=== PATIENT | male | born 1960 | race Caucasian/White ===

== ENCOUNTER 2017-03-14 06:06 | Inpatient (IN) | payer OTHER ==
[~2017-03-14] VITALS: Ht 185.4 cm; Wt 90.0 kg
--- NOTE | ~2017-03-14 | EKG ---
PATIENT: DIONICIO CLINE UNIT #: [id number] Ventricular Rate: 61 BPM Atrial Rate: 61 BPM P-R Interval: 182 ms QRS Duration: 96 ms Q-T Interval: 430 ms QTC Calculation(Bezet): 432 ms P [place]: 80 degrees Calculated R [place]: -14 degrees Calculated T [place]: 19 degrees Diagnosis Line: Normal sinus rhythm Diagnosis Line: Normal ECG Diagnosis Line: No previous ECGs available Diagnosis Line: Confirmed by SHUBHAM VARMA MD ([id number]) on Diagnosis Line: 03/16/2017 8:23:09 AM INTERPRETING MD: AVANI DOLAN
--- NOTE | ~2017-03-14 | CR72 ---
[facility] A Service of [facility] RADIOLOGY TEXT RESULTS PATIENT: DIONICIO CLINE RAY LOCATION: C4B 460-01 : 56 UNIT #: [id number] AGE: [address]: Martin Red MD SEX: M ORDER DR: [id number] [place] [address] [id number] E MR#: [id number] Acc #: [id number] NAME: DIONICIO CLINE : 1960 SEX: M STUDY DATE/TIME: 03/14/2017 7:12 UNIT: SED ROOM: STUDY DESCRIPTION: CR Chest Single View Portable Attending Physician: Clay Jesus M.D. Ordering Physician: Maria Fernanda Small M.D. MEDICAL IMAGING REPORT This report is preliminary unless electronic signature is present. EXAM Portable chest x-ray, 03/14/2017. HISTORY Chest pain and vomiting also upper abdomen pain radiates to right side prior to arrival. TECHNIQUE AP radiograph of the chest is presented. COMPARISON Images of chest from rib series, 03/18/2016. FINDINGS Heart and mediastinum within normal limits of size and contour. The lungs are well inflated bilaterally. There is no evidence of acute infectious or inflammatory disease, pleural effusion, or pneumothorax. No suspicious nodule. Bony structures show no acute abnormality. Dictated by... Jhony Mason M.D. THIS IS AN ELECTRONICALLY VERIFIED REPORT Jhony Mason M.D. at 03/16/2017 6:13 PM NAJMA/niall TD: 03/14/2017 11:31 JOB #: [id number] [facility] A Service of [facility] RADIOLOGY TEXT RESULTS PATIENT: DIONICIO CLINE RAY LOCATION: C4B 460-01 : 56 UNIT #: [id number] AGE: [address]: Martin Red MD SEX: M ORDER DR: MEDICAL IMAGING REPORT Page 1 of 1
--- NOTE | ~2017-03-14 | CO ---
Unit #: [id number] #: [id number] Patient: DIONICIO CLINE [id number] [address] [address] [id number] I MR#: [id number] NAME: DIONICIO CLINE ROOM: 460 Age: 56 Sex: M Admission Date: 03/14/2017 : 1960 Attending Physician: Martin Red Jr., M.D. Primary Care Physician: Primary Care Physician No Consultation Date: 03/16/2017 CONSULTATION REPORT REASON FOR CONSULTATION Abnormal LFTs and abdominal pain following laparoscopic cholecystectomy. HISTORY OF PRESENT ILLNESS Mr. Cline is a very pleasant 56-year-old white gentleman, who underwent laparoscopic cholecystectomy on 03/14/2017. This was done for acute cholecystitis and cholelithiasis. The patient postoperatively is jaundiced with bilirubin of 6. His bilirubin before the exam was normal. In addition, he is complaining of pain in the right upper quadrant of the abdomen along with tenderness and some rigidity in the abdomen. PAST MEDICAL HISTORY He has no significant past medical history and has had no prior abdominal surgeries. MEDICATIONS He is not on any regular medications. ALLERGIES Denies any drug allergies. SOCIAL HISTORY Lives at home with his family. Does not smoke. Drinks occasionally. He is physically fairly active. FAMILY HISTORY There is no family history of colon, pancreatic cancer, or liver disease. REVIEW OF SYSTEMS Detailed review of organ systems does not reveal any recent weight loss. No history of fever, chills, or rigors. No history of headache, seizure, chest pain, or syncope. No history of cough, expectoration, or hemoptysis. No history of dysuria, hematuria, or pyuria. No history of focal seizures or extremity weakness. PHYSICAL EXAMINATION GENERAL: He is alert and oriented, and appears uncomfortable due to the pain. VITAL SIGNS: His temperature is 101.1 yesterday and 100 today. In addition, his heart rate is 84 per minute, normal sinus rhythm; respiratory rate is 18, blood pressure is 126/86. He weighs 199 pounds, which is close to his baseline weight. HEENT: He has mild pallor. There being tinge of icterus. No lymphadenopathy or peripheral edema. Unit #: [id number] #: [id number] Patient: WALKER,DIONICIO RAY CARDIOVASCULAR: Normal heart sounds. No murmurs. LUNGS: Auscultation over the lungs reveal normal breath sounds. Good air entry. ABDOMEN: Shows tenderness over the right upper quadrant over a wide area as well as right mid abdomen. Liver and spleen are not palpable. Bowel sounds normal. DIAGNOSTIC STUDIES LABORATORY RESULTS: Shows a hemoglobin of 13, white count of 17,000 with left shift, platelet count is 166. Serum chemistry shows a total bilirubin of 5.8, it was 1.3 before surgery and AST and ALT are 32 and 39 respectively. Alkaline phosphatase 107. Sodium is 137 and potassium 3.8. CLINICAL IMPRESSION The patient is with jaundice postoperatively following laparoscopic cholecystectomy. The differential diagnosis here includes biliary ductal stones versus bile leak. An endoscopic retrograde cholangiopancreatography is warranted to be scheduled later today. The pros and cons of procedure, potential risks, and complications including possibility of perforation, bleeding, and complications related to sedation were discussed with the patient and he was reassured. Thank you for asking me to see this pleasant gentleman. I appreciate the consult. Dictated by... Frieda Hunter/fiorella TD: 03/23/2017 16:04 JOB #: [id number] CC: Martin Red Jr., M.D. CONSULTATION REPORT Page 1 of 1 X Chang Gee MD X CONSULTATION REPORT
--- NOTE | ~2017-03-14 | DS ---
Unit #: [id number] #: [id number] Patient: DIONICIO CLINE [id number] [address] [address] [id number] I MR#: [id number] NAME: DIONICIO CLINE ROOM: 460 Age: 56 Sex: M Admission Date: 03/14/2017 : 1960 Discharge Date: 03/18/2017 Attending Physician: Martin Red Jr., M.D. Primary Care Physician: No Primary Care Physician DISCHARGE SUMMARY ADMITTING PHYSICIAN Martin Red Jr., M.D. ADMITTING DIAGNOSIS Symptomatic cholelithiasis. DISCHARGE DIAGNOSIS Acute necrotizing cholecystitis and cholelithiasis. CONSULTATIONS Dr. Chang Gee M.D. PROCEDURES PERFORMED 1. On 03/15 he underwent laparoscopic cholecystectomy. 2. On 03/16 he underwent attempted ERCP which was unsuccessful. 3. On 03/17 he underwent ERCP at [facility] with retrieval of common bile duct stone and placement of stent. BRIEF HOSPITAL COURSE This is a 56-year-old gentleman who presented with right upper quadrant pain. He had ultrasound and CT scan done which showed cholelithiasis. There was no abnormal look/appearing features of the gallbladder at that time. He underwent laparoscopic cholecystectomy and he was noted to have fairly inflamed thickened gallbladder. Path report came back as acute necrotizing cholecystitis. Postoperatively he had a dramatic rise in his bilirubin and GI was consulted for ERCP. The first attempt was unsuccessful. Second attempt was successful. He had a decline in his total bilirubin on the following day and was discharged home. DISPOSITION Discharge to home. FOLLOWUP 1. He is to follow up with me in the office in two weeks. 2. He is to follow up with GI to schedule stent removal six to eight weeks from now. DISCHARGE MEDICATIONS He declined any narcotics at the time of discharge. ACTIVITY His activity is as tolerated. Unit #: [id number] #: [id number] Patient: DIONICIO CLINE Dictated by... Haseeb Davies III, M.D. VCL/adrian TD: 03/20/2017 15:53 JOB #: [id number] DISCHARGE SUMMARY Page 1 of 1 X Haseeb Davies III, MD DISCHARGE SUMMARY
--- NOTE | ~2017-03-14 | US67 ---
[facility] A Service of [facility] RADIOLOGY TEXT RESULTS PATIENT: DIONICIO CLINE LOCATION: C4B 460-01 : 56 UNIT #: [id number] AGE: [address]: Martin Red MD SEX: M ORDER DR: [id number] [place] [address] [id number] E MR#: [id number] Acc #: [id number] NAME: DIONICIO CLINE : 1960 SEX: M STUDY DATE/TIME: 03/14/2017 8:20 UNIT: SED ROOM: STUDY DESCRIPTION: US Gallbladder Attending Physician: Clay Jesus M.D. Ordering Physician: Clay Jesus M.D. MEDICAL IMAGING REPORT This report is preliminary unless electronic signature is present. EXAM Gallbladder ultrasound, 03/14 INDICATION Right upper quadrant pain and back pain for 1 day. FINDINGS Sonographic evaluation was performed of right upper quadrant in multiple planes. Comparison made with a CT scan performed 03/14/2017. Visualized portions of the pancreas are normal. The tail is partially obscured. Main portal vein patent by Doppler. Liver parenchyma is homogeneous and normal. No liver mass is identified. Right kidney is morphologically normal and nonobstructed. Gallbladder contains a stone in the neck. Gallbladder wall measures less than 4 mm in thickness. Common duct is normal at 5 mm or less internal diameter. IMPRESSION 1. Cholelithiasis. No ultrasound evidence of acute cholecystitis or biliary obstruction. 2. Otherwise normal right upper quadrant ultrasound. Dictated by... Janak You Jr., M.D. THIS IS AN ELECTRONICALLY VERIFIED REPORT Janak You Jr., M.D. at 03/15/2017 7:56 AM EHSAN/niall TD: 03/14/2017 16:19 JOB #: [id number] [facility] A Service of [facility] RADIOLOGY TEXT RESULTS PATIENT: DIONICIO CLINE LOCATION: C4B 460- : 56 UNIT #: [id number] AGE: [address]: Martin Red MD SEX: M ORDER DR: MEDICAL IMAGING REPORT Page 1 of 1
--- NOTE | ~2017-03-14 | HP ---
Unit #: [id number] #: [id number] Patient: DIONICIO CLINE [id number] [place] [address] [facility]. [place], [place] [address] [id number] I MR#: [id number] NAME: DIONICIO CLINE ROOM: 476 Age: 56 Sex: M Admission Date: 03/14/2017 : 1960 Attending Physician: Martin Red Jr., M.D. Primary Care Physician: No Primary Care Physician HISTORY AND PHYSICAL CHIEF COMPLAINT Severe right upper quadrant abdominal pain with associated nausea. HISTORY OF PRESENT ILLNESS The patient is a 56-year-old white male who was in normal good health up until earlier this morning when he developed significant right upper quadrant and mid epigastric abdominal pain with radiation to the chest. He has had some symptoms off and on but none of this extent and intensity. He also had some associated nausea with vomiting and went to the emergency room with these complaints. He was worked up in the emergency room, noted to have positive Hernandez sign with an ultrasound which revealed multiple gallstones with thickened wall of the gallbladder. He has had no significant gallbladder disease in the past. PAST MEDICAL HISTORY SERIOUS ILLNESSES: None. SURGERY: He has had multiple minor procedures including left foot surgery, tonsillectomy, left scleral retinal detachment and lens implant. MEDICATIONS None chronically. ALLERGIES None known. TRANSFUSIONS None in the past. FAMILY HISTORY Noncontributory. SOCIAL HISTORY The patient is a nonsmoker, occasional drinker, has a normal good appetite, no recent weight change. IMMUNIZATIONS Up to date. REVIEW OF SYSTEMS Ten-system review has been performed which is nonremarkable except as noted in the present illness. Unit #: [id number] #: [id number] Patient: DIONICIO CLINE PHYSICAL EXAMINATION VITAL SIGNS: Temperature on admission, the patient is afebrile. Pulse 63. Respirations 17. Blood pressure initially was 182/100. It is now down to 140/80. GENERAL DESCRIPTION: The patient is a well-developed 56-year-old white male in no acute distress. HEENT: Nonremarkable. NECK: Supple. CHEST: There is equal bilateral expansion with bilateral equal breath sounds. The lungs are clear bilaterally. HEART: Regular rhythm, without murmurs or gallops. There is no cardiomegaly clinically. ABDOMEN: Soft, moderate to markedly tender in the right upper quadrant with some guarding, without rebound. Active bowel sounds present. No evidence of ascites or hernias. EXTREMITIES: Full range of motion without limitation. peripheral edema. BACK EXAM: There is no CVA tenderness. NEUROLOGICALLY: Grossly intact. DIAGNOSTIC STUDIES LABORATORY: White blood cell count is elevated at 12,000. IMAGING: Ultrasound as noted above revealed evidence of gallstones with thickening of the wall of the gallbladder. IMPRESSION The patient likely has acute cholecystitis or subacute cholecystitis with cholelithiasis. PLAN The plan will be due to admit him, start him on IV antibiotics and tomorrow morning take him to the operating room for laparoscopic cholecystectomy. I have discussed this surgery including the risks including that of common duct injury, biliary leak and bleeding and intraabdominal organ injury and he consents. Dictated by Martin Red Jr. MMalcolm. RAYMON/adrian TD: 03/14/2017 16:36 JOB #: [id number] HISTORY AND PHYSICAL Page 1 of 1 X Martin Red MD X HISTORY AND PHYSICAL
--- NOTE | ~2017-03-14 | OR ---
Unit #: [id number] #: [id number] Patient: DIONICIO CLINE [id number] [place] [id number] [facility]. [place], [place] [address] [id number] I MR#: [id number] NAME: DIONICIO CLINE ROOM: 460 Date of Procedure: 03/16/2017 Admission Date: 03/14/2017 Surgeon: Chang Gee M.D. : 1960 Attending Physician: Martin Red Jr., M.D. OPERATIVE REPORT PREOPERATIVE DIAGNOSES Elevated bilirubin following a laparoscopic cholecystectomy. The patient also has history of right upper quadrant and right-sided abdominal pain and tenderness. The purpose of the examination is to look for any biliary leak or common bile duct stone. PROCEDURES PERFORMED Upper gastrointestinal endoscopy and attempted endoscopic retrograde cholangiopancreatography. POSTOPERATIVE DIAGNOSES 1. The patient had severe ulcerative esophagitis. This was quite impressive with linear ulcers ascending as far as the posterior pharynx. 2. Rest of the examination up to third part of duodenum was normal. 3. An hour and a half was spent in attempting cannulation of the common bile duct which was very difficult due to the difficult lie of the scope and the procedure was terminated after about an hour and 15 minutes. RECOMMENDATIONS 1. Pantoprazole 40 mg p.o. b.i.d. 2. The patient will be scheduled for repeat examination at [facility] with Dr. Diaz tomorrow. The above findings were discussed with the patient's family. SEDATION USED MAC. DESCRIPTION OF PROCEDURE Following detailed explanation of potential risks and complications of an upper endoscopy and an ERCP namely perforation, bleeding, and complications related to sedation, the patient was brought to GI lab and laid in the left semiprone position. Sedation using MAC was given. Lubricated tip of the Olympus video upper endoscope was passed through the bite block into the proximal esophagus under direct vision. The entire esophageal mucosa was examined. The patient was noted to have severe confluent ulcerative esophagitis involving the distal mid and proximal esophagus with linear ulcers ascending as far as the posterior pharynx. These findings were quite impressive. The scope was then advanced into the gastric cavity and the latter was insufflated. Mucosa of the fundus, body, and antrum was examined and appeared unremarkable. Pylorus was intubated with visualization of the normal duodenal bulb and second and third part of the duodenum. Upon withdrawal and retroflexion; incisura, Unit #: [id number] #: [id number] Patient: DIONICIO CLINE cardia, and greater curve was examined and no additional findings were noted. The scope was then withdrawn in the distal esophagus. Entire esophageal mucosa was examined all the way up to pharynx and no additional findings were noted. The ERCP part was done. A lateral-viewing duodenoscope was advanced through the oral cavity into the esophagus and advanced into the stomach. Pylorus was intubated in the usual fashion. The scope was advanced in deep descending duodenum. Upon shortening the scope, major papilla and ampullary area was visualized; however, the lie of the scope, because of the U-shaped stomach made it very difficult to enter the papillary area en face. After about an hour and 15 minutes, it was decided to abort the procedure and repeat the examination at [facility] tomorrow. This was discussed with Dr. Diaz on the phone and the patient will be rescheduled for a repeat ERCP tomorrow at [facility]. Dictated by... Frieda Hunter/fiorella TD: 03/20/2017 12:55 JOB #: [id number] OPERATIVE REPORT Page 1 of 1 X Chang Gee MD PROCEDURE OPERATIVE NOTE
--- NOTE | ~2017-03-14 | CT2 ---
[facility] A Service of [facility] RADIOLOGY TEXT RESULTS PATIENT: DIONICIO CLINE LOCATION: C4B 460-01 : 56 UNIT #: [id number] AGE: [address]: Martin Red MD SEX: M ORDER DR: [id number] [address] [address] [id number] E MR#: [id number] Acc #: [id number] NAME: DIONICIO CLINE : 1960 SEX: M STUDY DATE/TIME: 03/14/2017 7:07 UNIT: SED ROOM: STUDY DESCRIPTION: CT Abd and Pelv W Cont Attending Physician: Clay Jesus M.D. Ordering Physician: Maria Fernanda Small M.D. MEDICAL IMAGING REPORT This report is preliminary unless electronic signature is present. EXAM CT abdomen and pelvis, 03/14/2017. HISTORY chest pain and vomiting, also upper abdominal pain radiating to right side prior to arrival. TECHNIQUE CT abdomen and pelvis performed with intravenous administration of 100 mL Isovue-370. Enteric contrast not administered. This CT exam was performed with one or more of the following radiation dose reduction techniques: automatic exposure control, adjustment of mA and/or kV according to patient size, and iterative reconstruction. COMPARISON 07/06/2006 FINDINGS The lungs show dependent linear atelectasis. Inferior heart and pericardium show heart kedbrv-or-zuxwd limits of normal in size, stable. Liver unremarkable. Uncomplicated cholelithiasis. Spleen, pancreas, adrenal glands, kidneys unremarkable. CT PELVIS: No inguinal adenopathy. Urinary bladder unremarkable. There is mild prostatic enlargement. No focal prostatic abnormality is suggested. No pelvic fluid collections. No pelvic or retroperitoneal adenopathy. Small hiatal hernia. Remainder of visualized distal esophagus and stomach unremarkable. The small bowel is unremarkable. The appendix is not clearly identified. No pericecal or right lower quadrant inflammatory change is seen. The colon is unremarkable. The aorta appears of normal caliber. Scattered atherosclerotic arterial calcifications. Bony structures are remarkable. [facility] A Service of [facility] RADIOLOGY TEXT RESULTS PATIENT: DIONICIO CLINE RAY LOCATION: C4B 460-01 : [birth year] UNIT #: [id number] AGE: [address]: Martin Red MD SEX: M ORDER DR: IMPRESSION 1. There is no clearly acute abnormality seen within the abdomen or pelvis. 2. Uncomplicated cholelithiasis. 3. Small hiatal hernia. 4. Appendix not visualized but no pericecal or right lower quadrant inflammatory change is seen. 5. Mild prostatic enlarged without focal abnormality suggested. 6. Heart rzgrdj-dj-lzojc limits of normal in size, stable. 7. Dependent atelectasis lung bases. Dictated by... Jhony Mason M.D. THIS IS AN ELECTRONICALLY VERIFIED REPORT Jhony Mason M.D. at 03/16/2017 6:13 PM NAJMA/niall TD: 03/14/2017 11:26 JOB #: [id number] MEDICAL IMAGING REPORT Page 1 of 1
--- NOTE | ~2017-03-14 | OR ---
Unit #: [id number] #: [id number] Patient: DIONICIO CLINE [id number] [address] [address] [id number] Julisa MR#: [id number] NAME: DIONICIO CLINE ROOM: 460 Date of Procedure: 03/14/2017 Admission Date: 03/14/2017 Surgeon: Haseeb Davies III, M.D. : 1960 Attending Physician: Martin Red Jr., M.D. Primary Care Physician: Primary Care Physician No OPERATIVE REPORT PREOPERATIVE DIAGNOSIS Symptomatic cholelithiasis. POSTOPERATIVE DIAGNOSIS Acute cholecystitis. PROCEDURE PERFORMED Laparoscopic cholecystectomy. ANESTHESIA General. SPECIMENS Gallbladder to Pathology. COMPLICATIONS None apparent. ESTIMATED BLOOD LOSS Minimal. INDICATIONS FOR PROCEDURE This is a 56-year-old gentleman, who presented to the ER with abdominal pain. Ultrasound which confirmed gallstones and elevated white blood count. LFTs were normal. He is here today for laparoscopic cholecystectomy. DESCRIPTION OF PROCEDURE After consent was obtained, the patient was brought to the operating room and placed in the supine position. General anesthetic was administered and his abdomen was prepped and draped in standard surgical fashion. I made a 5-mm incision in the right upper quadrant. I used an Optiview to enter into the peritoneal cavity without any difficulty. CO2 pneumoperitoneum was then established. Next, a second 5-mm port was placed in the supraumbilical region and an 11-mm port was placed in the midepigastric region and a third 5-mm port was placed in the right lateral subcostal region. I began by attempting to grasp the gallbladder which was extremely distended. There was some light yellowish fluid in the right upper quadrant as well. Photos of that were obtained. I then aspirated the gallbladder and it had a very infected like fluid within the body of the gallbladder itself. I then was able to grasp the gallbladder and retracted it superiorly and laterally. It was very edematous and had Unit #: [id number] #: [id number] Patient: DIONICIO CLINE a lot of thickening of the wall. I am surprised his ultrasound and CT scan showed a relatively normal appearing gallbladder with the exception of gallstones. I then was able to dissect out the cystic duct and cystic artery and after these were carefully identified, I placed two clips proximally and one clip distally along both structures and then they were divided. There was also a small posterior branch, which was clipped and divided. I then took the gallbladder off the liver bed using the hook cautery. I placed the gallbladder within an EndoCatch bag and retrieved it through the epigastric port site after dilating the fascia. I had excellent hemostasis with the exception of some mild oozing from the liver bed which was contained with Surgicel. I irrigated and had good hemostasis again. The trocars were removed. I injected all the port sites with 0.25% plain Marcaine. I reapproximated the fascia at the epigastric port site with an interrupted 0 Vicryl rbyjvo-it-ygsiw suture. I then reapproximated the skin edges with interrupted 4-0 Vicryl subcuticular suture. Steri-Strips were then applied. The patient tolerated the procedure without any problems and returned to the recovery room in stable condition. Dictated by... Haseeb Davies III, M.D. VCL/fiorella TD: 03/15/2017 15:32 JOB #: [id number] OPERATIVE REPORT Page 1 of 1 X Haseeb Davies III, MD PROCEDURE OPERATIVE NOTE
[~2017-03-14 06:06] MED LIST: AVAPRO PO; VICODIN 5/500 T1 TAB PO; ZYRTEC PO
[2017-03-14 06:25] LABS: BASOPHIL% 0.3 % (0-2.5); EOSINOPHIL# 0.1 X10e3 (0-0.7); EOSINOPHIL% 0.5 % (0.0-7.0); HEMATOCRIT 44.9 % (38.0-50.0); HEMOGLOBIN 15.3 gm/dL (13.0-16.0); LYMPHOCYTE# 1.2 X10e3 (1.0-3.5); LYMPHOCYTE% 9.8 % (17.0-45.0); MEAN CELL VOLUME 90.5 FL (83-96); MEAN CORPUSCULAR HEMOGLOBIN 30.8 PG (28-34); MEAN PLATELET VOLUME 8.8 FL (6.5-11.5); MONOCYTE# 0.5 X10e3 (0-1.0); MONOCYTE% 4.1 % (3.0-12.0); NEUTROPHIL# 10.5 X10e3 (1.5-7.1); NEUTROPHIL% 85.3 % (40-75); PLATELET COUNT 209 X10e3 (140-420); RED BLOOD COUNT 4.96 X10e (3.90-5.60); RED CELL DISTRIBUTION WIDTH 13.7 % (11.0-15.5); WHITE BLOOD COUNT 12.4 X10e3 (4.0-10.5)
[2017-03-14 06:26] LABS: DIFF IND NO
[2017-03-14 06:37] LABS: INR 0.9; PROTHROMBIN TIME (PATIENT) 10.7 SECONDS (9.5-12.4)
[2017-03-14 06:43] LABS: POC - CKMB 1.6 ng/mL (0.0-7.9)
[2017-03-14 06:44] LABS: PARTIAL THROMBOPLASTIN TIME 27.3 SECONDS (25.6-38.1)
[2017-03-14 06:44] LABS: POC - MYOGLOBIN 56.7 ng/mL (0.0-169.0); POC - TROPONIN <0.05 ng/mL (<=0.05)
[2017-03-14 06:50] LABS: ALBUMIN SERUM 4.5 g/dL (3.5-5.0); ALKALINE PHOSPHATASE 70 U/L (32-92); ALT (SGPT) 22 U/L (10-40); AMYLASE 21 U/L (0-46); AST (SGOT) 18 U/L (10-42); BILIRUBIN, DIRECT 0.1 mg/dL (0.0-0.2); BILIRUBIN,INDIRECT 1.2 mg/dL (0.0-0.9); BILIRUBIN,TOTAL 1.3 mg/dL (0.2-2.0); BLOOD UREA NITROGEN 13 mg/dL (9-23); CALCIUM SERUM 8.6 mg/dL (8.4-10.2); CARBON DIOXIDE 26 mmol/L (22-31); CHLORIDE 103 mmol/L (100-111); GLOM FILT RATE Estimated 82.6 mL/min (>60); GLUCOSE FASTING 151 mg/dL (70-110); LIPASE 36 U/L (22-51); POTASSIUM 3.2 mmol/L (3.5-5.1); PROTEIN TOTAL SERUM 7.9 g/dL (6.0-8.3); SODIUM 139 mmol/L (135-145)
[2017-03-14 06:51] LABS: ALCOHOL BLOOD <5 mg/dL (0)
[2017-03-14 08:20] LABS: MICRO INDICATED? NO; URINE APPEARANCE CLEAR; URINE BILIRUBIN NEG (NEG); URINE BLOOD NEG (NEG); URINE COLOR YELLOW; URINE GLUCOSE NORM (NORM); URINE KETONE NEG (NEG); URINE LEUKOCYTE ESTERASE NEG (NEG); URINE NITRATE NEG (NEG); URINE PH 7.5 (5-8); URINE PROTEIN NEG (NEG); URINE SOURCE CLEAN CATCH; URINE SPECIFIC GRAVITY 1.015 (1.003-1.035); URINE UROBILINOGEN 0.2 MG/DL (NORM)
[2017-03-14 08:31] LABS: AMPHETAMINE NEG (NEG); BARBITURATES NEG (NEG); BENZODIAZEPINES NEG (NEG); COCAINE NEG (NEG); MARIJUANA NEG (NEG); OPIATES POS (NEG); TRICYCLIC ANTIDEPRESSANTS NEG (NEG); U METHADONE NEG (NEG)
[2017-03-15 03:37] LABS: BASOPHIL% 0.1 % (0-2.5); EOSINOPHIL% 0.1 % (0.0-7.0); HEMATOCRIT 42.2 % (38.0-50.0); HEMOGLOBIN 14.1 gm/dL (13.0-16.0); LYMPHOCYTE# 1.2 X10e3 (1.0-3.5); LYMPHOCYTE% 7.2 % (17.0-45.0); MEAN CELL VOLUME 90.9 FL (83-96); MEAN CORPUSCULAR HEMOGLOBIN 30.4 PG (28-34); MEAN CORPUSCULAR HGB CONC 33.4 g/dL (30-36); MONOCYTE# 1.2 X10e3 (0-1.0); MONOCYTE% 7.3 % (3.0-12.0); NEUTROPHIL# 14.5 X10e3 (1.5-7.1); NEUTROPHIL% 85.3 % (40-75); PLATELET COUNT 184 X10e3 (140-420); RED BLOOD COUNT 4.65 X10e (3.90-5.60); RED CELL DISTRIBUTION WIDTH 14.2 % (11.0-15.5); WHITE BLOOD COUNT 17.1 X10e3 (4.0-10.5)
[2017-03-15 03:38] LABS: DIFF IND YES
[2017-03-15 03:52] LABS: BUN/CREATININE RATIO 13.84; CALCIUM SERUM 8.2 mg/dL (8.4-10.2); CREATININE SERUM 1.3 mg/dL (0.6-1.4); GLOM FILT RATE Estimated 60.2 mL/min (>60); POTASSIUM 3.8 mmol/L (3.5-5.1)
[2017-03-15 04:05] LABS: PLATELET ESTIMATE DECREASED (NORMAL); RBC NORMAL YES
[2017-03-16 04:06] LABS: HEMATOCRIT 38.8 % (38.0-50.0); MEAN CELL VOLUME 91.6 FL (83-96); MEAN CORPUSCULAR HEMOGLOBIN 30.6 PG (28-34); MEAN CORPUSCULAR HGB CONC 33.5 g/dL (30-36); MEAN PLATELET VOLUME 9.2 FL (6.5-11.5); RED BLOOD COUNT 4.24 X10e (3.90-5.60); RED CELL DISTRIBUTION WIDTH 13.9 % (11.0-15.5); WHITE BLOOD COUNT 15.5 X10e3 (4.0-10.5)
[2017-03-16 04:31] LABS: ALBUMIN SERUM 3.3 g/dL (3.5-5.0); BILIRUBIN,TOTAL 5.8 mg/dL (0.2-2.0); CALCIUM SERUM 8.2 mg/dL (8.4-10.2); GLOM FILT RATE Estimated 82.6 mL/min (>60); POTASSIUM 3.8 mmol/L (3.5-5.1); PROTEIN TOTAL SERUM 6.5 g/dL (6.0-8.3)
[2017-03-17 02:26] LABS: BASOPHIL% 0.3 % (0-2.5); DIFF IND NO; EOSINOPHIL# 0.1 X10e3 (0-0.7); EOSINOPHIL% 0.9 % (0.0-7.0); HEMATOCRIT 35.8 % (38.0-50.0); LYMPHOCYTE# 0.8 X10e3 (1.0-3.5); LYMPHOCYTE% 8.4 % (17.0-45.0); MEAN CELL VOLUME 91.4 FL (83-96); MEAN CORPUSCULAR HEMOGLOBIN 30.6 PG (28-34); MEAN CORPUSCULAR HGB CONC 33.4 g/dL (30-36); MEAN PLATELET VOLUME 9.1 FL (6.5-11.5); MONOCYTE# 0.7 X10e3 (0-1.0); MONOCYTE% 6.6 % (3.0-12.0); NEUTROPHIL# 8.4 X10e3 (1.5-7.1); NEUTROPHIL% 83.8 % (40-75); PLATELET COUNT 151 X10e3 (140-420); RED BLOOD COUNT 3.92 X10e (3.90-5.60); RED CELL DISTRIBUTION WIDTH 13.9 % (11.0-15.5)
[2017-03-17 02:49] LABS: ALBUMIN SERUM 2.9 g/dL (3.5-5.0); BILIRUBIN, DIRECT 2.7 mg/dL (0.0-0.2); BILIRUBIN,TOTAL 6.3 mg/dL (0.2-2.0); BUN/CREATININE RATIO 13.75; CALCIUM SERUM 8.1 mg/dL (8.4-10.2); CREATININE SERUM 0.8 mg/dL (0.6-1.4); GLOM FILT RATE Estimated 98.5 mL/min (>60); POTASSIUM 3.8 mmol/L (3.5-5.1); PROTEIN TOTAL SERUM 5.5 g/dL (6.0-8.3)
[2017-03-18 03:33] LABS: ALBUMIN SERUM 2.8 g/dL (3.5-5.0); BILIRUBIN,TOTAL 3.3 mg/dL (0.2-2.0); CALCIUM SERUM 8.3 mg/dL (8.4-10.2); CREATININE SERUM 0.8 mg/dL (0.6-1.4); GLOM FILT RATE Estimated 98.5 mL/min (>60); POTASSIUM 3.4 mmol/L (3.5-5.1); PROTEIN TOTAL SERUM 5.9 g/dL (6.0-8.3)
[2017-03-18 03:59] LABS: BASOPHIL% 0.3 % (0-2.5); EOSINOPHIL# 0.3 X10e3 (0-0.7); EOSINOPHIL% 3.2 % (0.0-7.0); HEMATOCRIT 34.6 % (38.0-50.0); HEMOGLOBIN 11.9 gm/dL (13.0-16.0); LYMPHOCYTE# 0.8 X10e3 (1.0-3.5); LYMPHOCYTE% 9.2 % (17.0-45.0); MEAN CELL VOLUME 90.5 FL (83-96); MEAN CORPUSCULAR HEMOGLOBIN 31.1 PG (28-34); MEAN CORPUSCULAR HGB CONC 34.3 g/dL (30-36); MEAN PLATELET VOLUME 8.4 FL (6.5-11.5); MONOCYTE# 0.7 X10e3 (0-1.0); MONOCYTE% 8.4 % (3.0-12.0); NEUTROPHIL# 6.5 X10e3 (1.5-7.1); NEUTROPHIL% 78.9 % (40-75); PLATELET COUNT 166 X10e3 (140-420); RED BLOOD COUNT 3.83 X10e (3.90-5.60); RED CELL DISTRIBUTION WIDTH 13.4 % (11.0-15.5); WHITE BLOOD COUNT 8.2 X10e3 (4.0-10.5)
[2017-03-18 04:00] LABS: DIFF IND NO
[2017-03-18] MEDS ORDERED: PROTONIX PO (12:33)
== END 2017-03-18 17:00 | disposition home or self-care (01) | DRG 418 ==
LOC: SED 06:06 → C4B 09:40 → CEDOF 09:40 → C4B 09:40 → CEDOF 10:02 → SED 10:02 → C4C 10:02 → CEDOF 10:02 → C4C 12:22 → CEDOF 12:22 → C4C 12:22 → C4B 18:19 → C4C 18:19 → C4B 03-18 17:00
PROVIDERS: Internal Medicine Gastroenterology; Specialist; Student in an Organized Health Care Education/Training Program; Surgery
PROC: 0FT44ZZ Resection of Gallbladder, Percutaneous Endoscopic Approach (ICD-10-PCS; 2017-03-14)
PROC: 0FJB8ZZ Inspection of Hepatobiliary Duct, Via Natural or Artificial Opening Endoscopic (ICD-10-PCS; 2017-03-16)
PROC: 0DJ08ZZ Inspection of Upper Intestinal Tract, Via Natural or Artificial Opening Endoscopic (ICD-10-PCS; principal; 2017-03-16 18:00)
PROC: 0F798DZ Dilation of Common Bile Duct with Intraluminal Device, Via Natural or Artificial Opening Endoscopic (ICD-10-PCS; 2017-03-17)
DX: K80.63 Calculus of gallbladder and bile duct with acute cholecystitis with obstruction (principal); K22.10 Ulcer of esophagus without bleeding
CPT/HCPCS: 36415; 71010; 74177; 74330; 76705; 80048; 80053; 80076; 80307; 81003; 82150; 82248; 82553; 83690; 83735; 83874; 83880; 84484; 85025; 85027; 85610; 85730; 88304; 93005; 94760; 94761; 96361; 96374; 96375; 99285; C9113; G0480; J1100; J1170; J2250; J2270; J2370; J2405; J2543; J2550; J3010; Q9967

== ENCOUNTER → 2017-04-08 | Outpatient (CLI) | payer OTHER ==
[~2017-04-08] MED LIST changes: +PROTONIX PO
[2017-04-08 11:03] LABS: BASOPHIL# 0.1 X10e3 (0-0.3); BASOPHIL% 0.5 % (0-2.5); EOSINOPHIL# 0.3 X10e3 (0-0.7); EOSINOPHIL% 2.8 % (0.0-7.0); HEMOGLOBIN 13.5 gm/dL (13.0-16.0); LYMPHOCYTE# 1.7 X10e3 (1.0-3.5); LYMPHOCYTE% 16.9 % (17.0-45.0); MEAN CELL VOLUME 89.5 FL (83-96); MEAN CORPUSCULAR HEMOGLOBIN 30.2 PG (28-34); MEAN CORPUSCULAR HGB CONC 33.7 g/dL (30-36); MEAN PLATELET VOLUME 8.4 FL (6.5-11.5); MONOCYTE# 1.1 X10e3 (0-1.0); MONOCYTE% 11.3 % (3.0-12.0); NEUTROPHIL# 6.8 X10e3 (1.5-7.1); NEUTROPHIL% 68.5 % (40-75); PLATELET COUNT 328 X10e3 (140-420); RED BLOOD COUNT 4.47 X10e (3.90-5.60); RED CELL DISTRIBUTION WIDTH 13.4 % (11.0-15.5); WHITE BLOOD COUNT 9.9 X10e3 (4.0-10.5)
[2017-04-08 11:09] LABS: DIFF IND NO
[2017-04-08 11:43] LABS: ALBUMIN SERUM 4.2 g/dL (3.5-5.0); BUN/CREATININE RATIO 11.11; CALCIUM SERUM 8.8 mg/dL (8.4-10.2); CREATININE SERUM 0.9 mg/dL (0.6-1.4); GLOM FILT RATE Estimated 93.8 mL/min (>60); POTASSIUM 3.6 mmol/L (3.5-5.1); PROTEIN TOTAL SERUM 7.7 g/dL (6.0-8.3)
== END | disposition home or self-care (01) ==
LOC: CLAB 10:16
PROVIDERS: Internal Medicine Gastroenterology
DX: R10.9 Unspecified abdominal pain (principal); Z90.49 Acquired absence of other specified parts of digestive tract
CPT/HCPCS: 36415; 80053; 82150; 83690; 85025

== ENCOUNTER → 2017-04-08 | Outpatient (CLI) | payer OTHER ==
--- NOTE | ~2017-04-08 | CT2 ---
[facility] A Service of [facility] & [facility] RADIOLOGY TEXT RESULTS PATIENT: DIONICIO CLINE LOCATION: [facility] : 56 UNIT #: [id number] AGE: [address]: Haseeb Davies III, MD SEX: M ORDER DR: [id number] [facility] [address] [place], [place] [address] [id number] O MR#: [id number] Acc #: [id number] NAME: DIONICIO CLINE : 1960 SEX: M STUDY DATE/TIME: 04/08/2017 12:14 UNIT: [facility] ROOM: STUDY DESCRIPTION: CT Abd and Pelv W Cont Attending Physician: Haseeb Davies III, M.D. Referring Physician: Haseeb Davies III, M.D. Ordering Physician: Haseeb Davies III, M.D. Primary Care Physician: Primary Care Physician No MEDICAL IMAGING REPORT This report is preliminary unless electronic signature is present EXAM CT of the abdomen and pelvis with contrast HISTORY Right upper quadrant pain after cholecystectomy. Nausea and pain since 04/07. The patient had cholecystectomy on 03/15/2017 with a stent placed 03/17/2017. TECHNIQUE The patient was given 100 mL of Isovue-370 and axial 5 mm images were obtained through the abdomen and pelvis. Sagittal and coronal reconstructions were generated. This CT exam was performed with one or more of the following radiation dose reduction techniques: automatic exposure control, adjustment of mA and/or kV according to patient size, and iterative reconstruction. COMPARISON 03/14/2017 FINDINGS The lung bases are clear. The gallbladder has been removed. There is air in the biliary system and there is a distal biliary stent present. It appears to be in good position. It extends into the duodenum. There is no biliary distension. There is minimal fluid in the gallbladder fossa. There are clips in the gallbladder fossa. The spleen, pancreas, adrenal glands and kidneys are normal in appearance. The aorta is normal in size and there is no adenopathy. The bowel is normal. There is no evidence of appendicitis. The bladder is normal. The prostate gland is normal. The bones are unremarkable. [facility] A Service of [facility] & [facility] RADIOLOGY TEXT RESULTS PATIENT: DIONICIO CLINE [id number] 56 UNIT #: [id number] AGE: [address]: Haseeb Davies III, MD SEX: M ORDER DR: IMPRESSION 1. Status post cholecystectomy. 2. There is a distal biliary stent present that appears to be in good position and there is no biliary distension. 3. There is minimal fluid in the gallbladder fossa consistent with recent surgery. There is no evidence of abscess formation. That fluid collection in the gallbladder fossa is about 1.0 cm thick and perhaps 2-3 cm in length. 4. Otherwise the study is negative. STAT * RESULT Dictated by... Everett Keenan M.D. THIS IS AN ELECTRONICALLY VERIFIED REPORT Everett Keenan M.D. at 04/08/2017 1:48 PM Maria Eugenia TD: 04/08/2017 12:37 JOB #: [id number] MEDICAL IMAGING REPORT Page 1 of 1 COPY
== END | disposition home or self-care (01) ==
LOC: CCAT 10:00
DX: G89.18 Other acute postprocedural pain (principal); R10.11 Right upper quadrant pain; Z90.49 Acquired absence of other specified parts of digestive tract; Z97.8 Presence of other specified devices
CPT/HCPCS: 36415; 74177; 80053; 82150; 83690; 85025; Q9967